=== PATIENT | female | born 1980 | race African-American/Black ===

== ENCOUNTER 2019-08-15 23:08 | Emergency (ER) | payer SELFPAY ==
[~2019-08-15] VITALS: Ht 170.2 cm; Wt 81.8 kg
[2019-08-15 23:51] VITALS: BP 135/94
[2019-08-16 00:49] LABS: CLARITY URINE CLEAR (CLEAR); COLOR URINE YELLOW (YELLOW); KETONES URINE NEGATIVE (NEGATIVE); LEUKOCYTE ESTERASE URINE TRACE (NEGATIVE); NITRITE URINE NEGATIVE (NEGATIVE); OCCULT BLOOD URINE NEGATIVE (NEGATIVE); PROTEIN URINE NEGATIVE (NEGATIVE); SPECIFIC GRAVITY URINE 1.022 (1.005-1.030)
== END 2019-08-16 02:26 | disposition home or self-care (01) ==
LOC: ER 23:08
DX: R51 Headache (principal); J06.9 Acute upper respiratory infection, unspecified; Z90.710 Acquired absence of both cervix and uterus; E03.9 Hypothyroidism, unspecified
CPT/HCPCS: 81003; 81025; 99283